=== PATIENT | female | born 1995 | race Caucasian/White ===

== ENCOUNTER → 2020-03-17 | Outpatient (CLI) | payer OTHER ==
[~2020-03-17] MED LIST: HUMI40KI SC; IRON65TA2 PO; METR375C3 PO; SERT25TA21; SERT50TA29; VITA1CAP25 PO
[2020-03-17 13:54] LABS: BASO % 0.5 % (0.0-1.0); EOS # 0.2 10^3/uL (0.0-0.5); EOS % 2.4 % (0.0-3.0); HEMATOCRIT 39.6 % (36.0-47.0); HEMOGLOBIN 13.5 g/dl (12.0-15.5); LYMPH # 2.3 10^3/uL (1.5-5.0); LYMPH % 36.2 % (24.0-44.0); MEAN CORPUSCULAR HEMOGLOBIN 31.6 pg (27.0-33.0); MEAN CORPUSCULAR HGB CONC 34.1 g/dl (32.0-36.5); MEAN CORPUSCULAR VOLUME 92.7 fl (80.0-96.0); MONO # 0.3 10^3/uL (0.0-0.8); MONO % 4.7 % (0.0-5.0); NEUTROPHILS # 3.6 10^3/uL (1.5-8.5); NEUTROPHILS % 55.9 % (36.0-66.0); PLATELET COUNT, AUTOMATED 289 10^3/uL (150-450); RED BLOOD COUNT 4.27 10^6/uL (4.00-5.40); WHITE BLOOD COUNT 6.4 10^3/uL (4.0-10.0)
[2020-03-17 14:31] LABS: ALBUMIN 4.2 GM/DL (3.2-5.2); ALT/SGPT 33 U/L (12-78); BLOOD UREA NITROGEN 13 MG/DL (7-18); CALCIUM LEVEL 8.7 MG/DL (8.5-10.1); CARBON DIOXIDE LEVEL 22 MEQ/L (21-32); CHLORIDE LEVEL 108 MEQ/L (98-107); CREATININE FOR GFR 0.82 MG/DL (0.55-1.30); FREE T4 1.02 NG/DL (0.76-1.46); GLOMERULAR FILTRATION RATE > 60.0 (>60); GLUCOSE, FASTING 86 MG/DL (70-100); POTASSIUM SERUM 3.8 MEQ/L (3.5-5.1); SODIUM LEVEL 139 MEQ/L (136-145); TOTAL PROTEIN 8.3 GM/DL (6.4-8.2)
== END ==
LOC: M LAB 12:16
PROVIDERS: ATTEND Internal Medicine Gastroenterology
DX: K63.89 Other specified diseases of intestine (principal)

== ENCOUNTER → 2020-06-10 | Outpatient (CLI) | payer OTHER ==
[~2020-06-10] MED LIST changes: +E-Z-PAQUE 96% w/w SUSP 176GM BTL As Ordered ONE
--- NOTE | 2020-06-15 09:59 | REP ---
UPPER GI AIR CONTRAST AND SMALL BOWEL FOLLOW-THROUGH This procedure was performed by COLIN Townsend, under the direct supervision of Dr. House. The images were reviewed with Dr. House prior to dictation. The orthotics assistant film shows no organomegaly or pathological masses. The intestinal gas pattern is nonspecific. Liquid barium was administered and the barium column was followed through the small bowel to the level of the terminal ileum. Small bowel transit time is approximately 40 minutes. During fluoroscopy, gentle palpation shows all loops are freely movable and pliable. There are no fixed or angulated loops. The small bowel mucosal pattern is normal in course and caliber. There is no transition to suggest a partial small bowel obstruction. Spot filming of the terminal ileum shows it to be unremarkable. IMPRESSION: Unremarkable small bowel follow-through. 0.4 minutes of fluoroscopy time was utilized for this procedure. ANA
== END ==
LOC: M RAD 07:49
PROVIDERS: ATTEND Internal Medicine Gastroenterology
DX: K63.89 Other specified diseases of intestine (principal)

== ENCOUNTER → 2020-06-13 | Outpatient (CLI) | payer OTHER ==
[~2020-06-13] MED LIST changes: -E-Z-PAQUE 96% w/w SUSP 176GM BTL As Ordered ONE
== END ==
LOC: M LABSMTC 10:34
PROVIDERS: ATTEND Anesthesiology
DX: Z01.812 Encounter for preprocedural laboratory examination (principal); Z20.828 Contact with and (suspected) exposure to other viral communicable diseases
CPT/HCPCS: C9803; U0003

== ENCOUNTER 2020-06-18 13:42 | Day surgery (SDC) | payer OTHER ==
[~2020-06-18] VITALS: Ht 165.1 cm; Wt 82.9 kg
[~2020-06-18 13:42] MED LIST changes: +LIDOCAINE 2% 100MG/5ML SDV (FOR ANES.) As Ordered ONE; +NS 1,000 ML IV ONE; +propofoL 200 MG/20 ML VIAL As Ordered ONE
[2020-06-18] MEDS ORDERED: propofoL 200 MG/20 ML VIAL As Ordered ONE (15:40)
--- NOTE | 2020-06-18 15:42 | ROOR ---
Patient Name: Eileen Yang Procedure Date: 06/18/2020 3:29 PM Date of : 1995 Age: 24 Room: [facility] Gender: Female Note Status: Finalized Procedure: Upper GI endoscopy Indications: Generalized abdominal pain, r/o Inflammatory bowel disease. ulcerative colitis vs crohns disease. Providers: Darien BANKS MD Referring MD: Oanh ROBB MD Requesting Provider: Medicines: Monitored Anesthesia Care Complications: No immediate complications. Procedure: Pre-Anesthesia Assessment: - The heart rate, respiratory rate, oxygen saturations, blood pressure, adequacy of pulmonary ventilation, and response to care were monitored throughout the procedure. The Endoscope was introduced through the mouth, and advanced to the third part of duodenum. The upper GI endoscopy was accomplished without difficulty. The patient tolerated the procedure well. Findings: The esophagus was normal. The stomach was normal. The examined duodenum was normal. Impression: - Normal esophagus. - Normal stomach. - Normal examined duodenum. - No specimens collected. Recommendation: - Continue present medications. Darien Banks MD Darien BANKS MD 06/18/2020 3:41:35 PM Electronically signed by Darien BANKS MD Number of Addenda: 0 Note Initiated On: 06/18/2020 3:29 PM Estimated Blood Loss: Estimated blood loss: none.
--- NOTE | 2020-06-18 16:07 | ROOR ---
Patient Name: Eileen Yang Procedure Date: 06/18/2020 3:30 PM Date of : 1995 Age: 24 Room: [id number] Gender: Female Note Status: Finalized Procedure: Colonoscopy Indications: High risk colon cancer surveillance: Inflammatory bowel disease (unclassified) of 8 (or more) years duration with one-third (or more) of the colon involved. Providers: Darien BANKS MD Referring MD: Oanh ROBB MD Requesting Provider: Medicines: Monitored Anesthesia Care Complications: No immediate complications. Procedure: Pre-Anesthesia Assessment: - The heart rate, respiratory rate, oxygen saturations, blood pressure, adequacy of pulmonary ventilation, and response to care were monitored throughout the procedure. The Colonoscope was introduced through the anus and advanced to 10 cm into the ileum. The colonoscopy was performed without difficulty. The patient tolerated the procedure well. The quality of the bowel preparation was good. Findings: The perianal and digital rectal examinations were normal. Pertinent negatives include no anal lesion or abnormality. The terminal ileum appeared normal. Inflammation characterized by scarring was found in a continuous and circumferential pattern from the rectum to the cecum. When compared to previous examinations, the findings are in remission. Biopsies were taken with a cold forceps for histology. Scattered pseudopolyps were found in the transverse colon, in the ascending colon and at the appendiceal orifice. This was biopsied with a cold forceps for histology. Impression: - Pancolitis ulcerative colitis- in remission. Diffuse/scattered mucosal scarring found from the rectum to the cecum. No significant mucosal inflammation seen visually. (In remission). Multiple random biopsies throughout the entire colon. - Pseudopolyps in the transverse colon, in the ascending colon and at the appendiceal orifice. Biopsied. - The terminal ileum and perianal exam is normal Recommendation: - Continue/Use Humira (adalimumab) at 40 mg subcutaneously every other week. - Return to my office in 6 months. Darien Banks MD Darien BANKS MD 06/18/2020 4:06:44 PM Electronically signed by Darien BANKS MD Number of Addenda: 0 Note Initiated On: 06/18/2020 3:30 PM Estimated Blood Loss: Estimated blood loss: none.
[2020-06-18 16:23] VITALS: BP 118/60
== END 2020-06-18 16:26 | disposition home or self-care (01) ==
LOC: M OPP 13:42
PROVIDERS: ATTEND Internal Medicine Gastroenterology
DX: K52.3 Indeterminate colitis (principal); K51.00 Ulcerative (chronic) pancolitis without complications; K51.40 Inflammatory polyps of colon without complications; R10.84 Generalized abdominal pain; Z79.899 Other long term (current) drug therapy

== ENCOUNTER 2021-02-27 12:23 | Emergency (ER) | payer OTHER ==
[~2021-02-27] VITALS: Ht 162.6 cm; Wt 85.9 kg
[~2021-02-27 12:23] MED LIST changes: -LIDOCAINE 2% 100MG/5ML SDV (FOR ANES.) As Ordered ONE; -NS 1,000 ML IV ONE; -propofoL 200 MG/20 ML VIAL As Ordered ONE
[2021-02-27 14:39] VITALS: O2SAT 99
[2021-02-27 14:44] LABS: BASO % 0.6 % (0.0-1.0); EOS # 0.1 10^3/uL (0.0-0.5); HEMATOCRIT 45.4 % (36.0-47.0); HEMOGLOBIN 15.1 g/dl (12.0-15.5); LYMPH # 1.4 10^3/uL (1.5-5.0); LYMPH % 19.4 % (24.0-44.0); MEAN CORPUSCULAR HEMOGLOBIN 31.3 pg (27.0-33.0); MEAN CORPUSCULAR HGB CONC 33.3 g/dl (32.0-36.5); MEAN CORPUSCULAR VOLUME 94.2 fl (80.0-96.0); MONO # 0.6 10^3/uL (0.0-0.8); MONO % 8.4 % (2.0-8.0); NEUTROPHILS # 5.1 10^3/uL (1.5-8.5); NEUTROPHILS % 70.3 % (36.0-66.0); PLATELET COUNT, AUTOMATED 254 10^3/uL (150-450); RED BLOOD COUNT 4.82 10^6/uL (4.00-5.40); WHITE BLOOD COUNT 7.2 10^3/uL (4.0-10.0)
[2021-02-27 15:04] LABS: ALBUMIN 4.2 GM/DL (3.2-5.2); ALT/SGPT 34 U/L (12-78); BILIRUBIN,TOTAL 0.6 MG/DL (0.2-1.0); BLOOD UREA NITROGEN 11 MG/DL (7-18); CARBON DIOXIDE LEVEL 24 MEQ/L (21-32); CHLORIDE LEVEL 108 MEQ/L (98-107); CK-MB VALUE MASS < 1.0 NG/ML (<3.6); CPK CREATINE PHOSPHOKINASE 67 U/L (26-192); CREATININE FOR GFR 0.71 MG/DL (0.55-1.30); GLOMERULAR FILTRATION RATE > 60.0 (>60); GLUCOSE, FASTING 86 MG/DL (70-100); LDH LACTATE DEHYDROGENASE 170 U/L (84-246); MB/CK RELATIVE INDEX 1.49 (< OR =4); POTASSIUM SERUM 4.2 MEQ/L (3.5-5.1); SODIUM LEVEL 137 MEQ/L (136-145); TOTAL PROTEIN 8.4 GM/DL (6.4-8.2); TROPONIN I < 0.02 NG/ML (< 0.10)
--- NOTE | 2021-02-27 15:32 | REP ---
INDICATION: chest pain, cough COMPARISON: None. TECHNIQUE: PA and lateral. FINDINGS: The mediastinum and cardiac silhouette are normal. The lung schmitt are clear and without acute consolidation, effusion, or pneumothorax. The skeletal structures are intact and normal. IMPRESSION: No acute cardiopulmonary process. <Electronically signed by Jose Juan Nelson > 02/27/21 [id number]
[2021-02-27] MEDS ORDERED: BENZONATATE 100 MG CAP PO ONE (15:40)
[2021-02-27 18:01] LABS: CK-MB VALUE MASS < 1.0 NG/ML (<3.6); CPK CREATINE PHOSPHOKINASE 75 U/L (26-192); MB/CK RELATIVE INDEX 1.33 (< OR =4); TROPONIN I < 0.02 NG/ML (< 0.10)
[2021-02-27] MEDS ORDERED: NAPR-837 PO (18:13)
[2021-02-27] MEDS ORDERED: PSEU120T19 PO (18:13)
[2021-02-27] MEDS ORDERED: FLON1SPR NARES (18:13)
[2021-02-27] MEDS ORDERED: TESS100C PO (18:13)
[2021-02-27 18:18] VITALS: BP 135/84
--- NOTE | 2021-02-27 20:52 | ECGEPIP ---
[facility] - ED Test Date: 2021-02-27 Pat Name: MAN HUNTER Department: Room: - Gender: Female Ed Physicians: : 1995 Requested By: ABAD Ventura PA-C Order Number: [id number] Reading MD: Milagro Diop Measurements Intervals [place] Rate: 69 P: 37 NC: 166 QRS: 72 QRSD: 80 T: 62 QT: 400 QTc: 428 Interpretive Statements Normal sinus rhythm No prior Electronically Signed on 02-27-2021 20:51:40 EDT by Milagro Diop
--- NOTE | 2021-02-27 20:54 | ECGEPIP ---
[facility] - ED Test Date: 2021-02-27 Pat Name: MAN HUNTER Department: Room: - Gender: Female Etl Bi Developer: : 1995 Requested By: ABAD Ventura PA-C Order Number: [id number] Reading MD: Milagro Diop Measurements Intervals [place] Rate: 78 P: 53 OK: 160 QRS: 69 QRSD: 78 T: 61 QT: 382 QTc: 435 Interpretive Statements Sinus rhythm with marked sinus arrhythmia Electronically Signed on 02-27-2021 20:53:58 EDT by Milagro Diop
== END 2021-02-27 18:28 | disposition home or self-care (01) ==
LOC: M ED 12:23
DX: J20.5 Acute bronchitis due to respiratory syncytial virus (principal); F17.200 Nicotine dependence, unspecified, uncomplicated; F12.10 Cannabis abuse, uncomplicated

== ENCOUNTER → 2021-08-04 | Outpatient (CLI) | payer OTHER ==
[~2021-08-04] MED LIST changes: +FLON1SPR NARES; +NAPR-837 PO; +PSEU120T19 PO; +TESS100C PO
== END ==
LOC: M PLALAB 12:20
PROVIDERS: ATTEND Internal Medicine Gastroenterology
DX: K51.00 Ulcerative (chronic) pancolitis without complications (principal)

== ENCOUNTER → 2021-09-15 | Outpatient (CLI) | payer OTHER | LOC: M LABSMTC 12:22 | PROVIDERS: ATTEND Pediatrics | DX: Z20.822 Contact with and (suspected) exposure to COVID-19 (principal) ==

== ENCOUNTER 2022-01-30 13:18 | Emergency (ER) | payer OTHER ==
[~2022-01-30] VITALS: Ht 162.6 cm; Wt 90.9 kg
[2022-01-30] MEDS ORDERED: LIDOCAINE VISCOUS 2% SOLN 15ML UDC SS ONE (14:15)
[2022-01-30] MEDS ORDERED: AMOXICILLIN 500 MG CAP PO ONE (14:15)
[2022-01-30] MEDS ORDERED: IBUPROFEN 600MG TAB PO ONE (14:15)
[2022-01-30] MEDS ORDERED: LIDO2SOL9 PO (14:57)
[2022-01-30] MEDS ORDERED: IBUP-1022 PO (14:57)
[2022-01-30] MEDS ORDERED: AMOX500C PO (14:57)
[2022-01-30 15:28] VITALS: BP 130/82
== END 2022-01-30 15:36 | disposition home or self-care (01) ==
LOC: M ED 13:18
DX: J02.0 Streptococcal pharyngitis (principal); F17.200 Nicotine dependence, unspecified, uncomplicated; Z79.899 Other long term (current) drug therapy

== ENCOUNTER → 2022-09-22 | Outpatient (CLI) | payer OTHER ==
[~2022-09-22] MED LIST changes: +AMOX500C PO; +IBUP-1022 PO; +LIDO2SOL9 PO
[2022-09-22 18:11] LABS: BASO % 0.5 % (0.0-1.0); EOS # 0.1 10^3/uL (0.0-0.5); EOS % 1.7 % (0.0-3.0); HEMATOCRIT 39.6 % (36.0-47.0); HEMOGLOBIN 13.3 g/dl (12.0-15.5); LYMPH # 3.2 10^3/uL (1.5-5.0); LYMPH % 42.4 % (24.0-44.0); MEAN CORPUSCULAR HEMOGLOBIN 32.4 pg (27.0-33.0); MEAN CORPUSCULAR HGB CONC 33.6 g/dl (32.0-36.5); MEAN CORPUSCULAR VOLUME 96.6 fl (80.0-96.0); MONO # 0.5 10^3/uL (0.0-0.8); MONO % 6.8 % (2.0-8.0); NEUTROPHILS # 3.7 10^3/uL (1.5-8.5); NEUTROPHILS % 48.5 % (36.0-66.0); PLATELET COUNT, AUTOMATED 341 10^3/uL (150-450); WHITE BLOOD COUNT 7.5 10^3/uL (4.0-10.0)
[2022-09-22 19:05] LABS: ALBUMIN 4.2 G/DL (3.2-5.2); ALKALINE PHOSPHATASE 58 U/L (46-116); ALT/SGPT 33 U/L (7.0-40); AST/SGOT 28 U/L (<34); BILIRUBIN,TOTAL 0.4 MG/DL (0.3-1.2); BLOOD UREA NITROGEN 15 MG/DL (9-23); C REACTIVE PROTEIN QUANTITATIV < 0.40 MG/DL (<1.0); CALCIUM LEVEL 9.5 MG/DL (8.5-10.1); CARBON DIOXIDE LEVEL 28 MMOL/L (20-31); CHLORIDE LEVEL 103 MMOL/L (98-107); CREATININE FOR GFR 0.72 MG/DL (0.55-1.30); GLOMERULAR FILTRATION RATE > 60.0 (>60); GLUCOSE, FASTING 106 MG/DL (60-100); POTASSIUM SERUM 4.2 MMOL/L (3.5-5.1); SODIUM LEVEL 138 MMOL/L (136-145); TOTAL PROTEIN 7.5 G/DL (5.7-8.2)
[2022-09-22 19:07] LABS: VITAMIN B12 LEVEL 500 PG/ML (211-911)
[2022-09-22 19:18] LABS: HEPATITIS B SURFACE ANTIGEN NEGATIVE (NEGATIVE)
[2022-09-22 19:32] LABS: ERYTHROCYTE SEDIMENTATION RATE 15 mm/hr (0-20)
== END ==
LOC: M PLALAB 14:29
PROVIDERS: ATTEND Internal Medicine Gastroenterology
DX: K51.00 Ulcerative (chronic) pancolitis without complications (principal)

== ENCOUNTER → 2023-08-17 | Outpatient (CLI) | payer OTHER ==
[~2023-08-17] MED LIST changes: +LIDO100S29 PO; -LIDO2SOL9 PO
== END ==
LOC: M LAB 10:35
PROVIDERS: ATTEND Internal Medicine Gastroenterology
DX: K51.00 Ulcerative (chronic) pancolitis without complications (principal)